=== PATIENT | female | born 1945 | race Two or more races ===

== ENCOUNTER 2018-03-11 18:25 | Emergency (ER) | payer OTHER ==
[2018-03-11] MEDS: ONDANSETRON 4 MG INJ IV (19:15)
[2018-03-11] MEDS: morphine 2 MG INJ IV (19:16)
[2018-03-11] MEDS: KETOROLAC 15 MG INJ IV (21:29)
[2018-03-11] MEDS: HYDROCODONE/APAP (5/325) TAB PO (21:29)
== END 2018-03-11 23:22 | disposition home or self-care (01) ==
LOC: E/R 18:25
DX: S39.012A Strain of muscle, fascia and tendon of lower back, initial encounter (principal); R40.2142 Coma scale, eyes open, spontaneous, at arrival to emergency department; R40.2252 Coma scale, best verbal response, oriented, at arrival to emergency department; R40.2362 Coma scale, best motor response, obeys commands, at arrival to emergency department; I10 Essential (primary) hypertension; V89.2XXA Person injured in unspecified motor-vehicle accident, traffic, initial encounter; Z79.01 Long term (current) use of anticoagulants; Z96.651 Presence of right artificial knee joint; Z98.61 Coronary angioplasty status
CPT/HCPCS: 71045; 72125; 72128; 72131; 73030; 93005; 96374; 96375; 99285-25